=== PATIENT | female | born 1985 | race Caucasian/White ===

== ENCOUNTER 2019-05-10 22:35 | Emergency (ER) | payer OTHER ==
[2019-05-11] MEDS: MECLIZINE 12.5 MG TAB PO (00:37)
[2019-05-11] MEDS: LORAZEPAM 1 MG TAB PO (00:37)
== END 2019-05-11 01:47 | disposition home or self-care (01) ==
LOC: FTE 22:35
DX: H81.12 Benign paroxysmal vertigo, left ear (principal)
CPT/HCPCS: 81025; 99283